=== PATIENT | female | born 1965 | race Asian ===

== ENCOUNTER 2017-04-26 07:54 | Outpatient (CLI) | payer OTHER | END 2017-04-26 18:58 | disposition home or self-care (01) | LOC: MAMMO 07:54 | DX: Z12.31 Encounter for screening mammogram for malignant neoplasm of breast (principal) ==

== ENCOUNTER 2018-04-30 14:27 | Outpatient (CLI) | payer OTHER | END 2018-04-30 23:34 | disposition home or self-care (01) | LOC: MAMMO 14:27 | DX: Z12.31 Encounter for screening mammogram for malignant neoplasm of breast (principal) ==

== ENCOUNTER 2019-05-08 11:43 | Outpatient (CLI) | payer OTHER | END 2019-05-08 21:52 | disposition home or self-care (01) | LOC: MAMMO 11:43 | DX: Z12.31 Encounter for screening mammogram for malignant neoplasm of breast (principal) ==

== ENCOUNTER 2021-01-17 08:41 | Outpatient (CLI) | payer OTHER | END 2021-01-17 20:56 | disposition home or self-care (01) | LOC: MAMMO 08:41 | PROVIDERS: ATTEND Internal Medicine | DX: Z12.31 Encounter for screening mammogram for malignant neoplasm of breast (principal) ==